=== PATIENT | male | born 1965 | race Caucasian/White ===

== ENCOUNTER → 2018-05-04 | Outpatient (CLI) | payer OTHER | LOC: M.ULTRA 06:22 | DX: R11.0 Nausea (principal); R10.11 Right upper quadrant pain; R10.13 Epigastric pain ==

== ENCOUNTER 2019-01-06 09:01 | Emergency (ER) | payer OTHER ==
[~2019-01-06] VITALS: Ht 182.9 cm; Wt 118.8 kg
[2019-01-06 09:32] LABS: ABSOLUTE LYMPHOCYTES 1.8 thou/uL (0.8-5.3); ABSOLUTE MONOCYTES 0.3 thou/uL (0.0-1.2); ABSOLUTE NEUTROPHILS 2.2 thou/uL (1.6-8.1); EOSINOPHILS 0.4 %; HEMATOCRIT 46.3 % (42.0-52.0); HEMOGLOBIN 15.8 gm/dL (14.0-18.0); LYMPHOCYTES 41.1 %; MCH 32.1 pg (26.0-34.0); MCHC 34.2 g/dL (28.0-37.0); MONOCYTES 7.7 %; NUCLEATED RBCS 0 /100WBC; PLATELET COUNT* 159 thou/uL (150-400); POLYS 49.8 %; RBC 4.93 mil/uL (4.50-6.00); RDW-CV 13.3 % (10.5-14.5); WBC 4.3 thou/uL (4.0-11.0)
[2019-01-06 09:44] LABS: APTT 23.1 Seconds (25.0-31.3); PROTIME 10.5 Seconds (9.20-11.50)
[2019-01-06 09:49] LABS: ANION GAP 7 mmol/L (7-16); BUN 12 mg/dL (7-18); CALCIUM 9.3 mg/dL (8.5-10.1); CHLORIDE 103 mmol/L (98-107); CO2 27 mmol/L (21-32); CREATININE 1.1 mg/dL (0.6-1.3); GLUCOSE 109 mg/dL (70-99); POTASSIUM 4.2 mmol/L (3.5-5.1); SODIUM 137 mmol/L (136-145)
[2019-01-06 09:53] LABS: ALBUMIN 3.9 g/dL (3.4-5.0); ALKALINE PHOSPHATASE 59 U/L (46-116); CK-MB MASS 1.5 ng/mL (<0.5-3.6); LIPASE 162 U/L (73-393); NT-PRO BRAIN NAT PEPTIDE 32 pg/mL (<300); SGOT 71 U/L (15-37); SGPT 150 U/L (30-65); TOTAL BILIRUBIN 0.4 mg/dL (<0.1-1.0); TOTAL PROTEIN 7.8 g/dL (6.4-8.2); TROPONIN-I LEVEL <0.06 ng/mL (<0.06)
--- NOTE | 2019-01-06 14:34 | EKG ---
[place] [address] ELECTROCARDIOGRAM REPORT Name: LESLIE MAIN Room: [facility]#: [id number] Admission: 01/06/19 Attend Phys: Discharge: Date of : 67 Report #: [id number] THIS REPORT FOR: //name// [facility] ED Test Date: 2019-01-06 Test Time: 09:04:44 Pat Name: LESLIE MAIN Department: Room: Gender: Prospect Manager: : 1965 Requested By: Zander Benavidez Order Number: [id number] MD: Laci Melchor Measurements Intervals Barre Rate: 58 P: 32 IN: 148 QRS: -23 QRSD: 87 T: 64 QT: 381 QTc: 375 Interpretive Statements Sinus rhythm Borderline left axis deviation Baseline wander in lead(s) V1 No previous ECG available for comparison Electronically Signed On 01-06-2019 14:33:45 CDT by Laci Melchor [email or web address] <ELECTRONICALLY SIGNED> By: Laci Melchor MD, [facility] 01/06/19 1433 0904 3 Laci Melchor MD, FACC /EPI
[2019-01-06 15:46] VITALS: BP 125/86
--- NOTE | 2019-01-06 16:53 | EXE ---
[place] [address] STRESS ECHOCARDIOGRAM Name: LESLIE MAIN Room: [facility]#: [id number] Admission: 01/06/19 Attend Phys: Discharge: 01/06/19 Date of : 67 Date of Service: 01/06/19 1652 Report #: [id number] THIS REPORT FOR: //name// APPROVED REPORT Study performed: 01/06/2019 14:48:14 Exam: Stress Echocardiogram Indication: Chest pain, Left arm numbness Patient Location: ER Stress Nurse: Fauzia Martínez RN Supervising Physician: Keith Greene MD Ht: 6 ft 0 in HR: 49 bpm BP: 137/78 mmHg Procedure The patient underwent an Exercise Stress Test using the Dom Protocol. Blood pressure, heart rate, and EKG were monitored. An Echocardiogram was performed by payroll technician in four stages in quad fashion. At peak stress, four selected images were obtained and placed side by side with resting images for comparison. Echo Enhancing Agent Indication: Endocardial border delineation Agent(s) / Amount(s) Used: Optison 10 cc Stress Test Details Stress Test: Exercise stress testing was performed using a Dom protocol. HR Resting HR: 49 bpm Max Heart Rate (APMHR): 168 bpm Max HR Achieved: 167 bpm Target HR (85% APMHR): 142 bpm % of APMHR: 99 Recovery HR: 103 bpm HR response to stress: Normal HR response to stress BP Resting BP: 137/78 mmHg Max BP: 216/87 mmHg Recovery BP: 143/79 mmHg BP response to stress: Normal blood pressure response to stress. ECG Resting ECG: [place] [address] STRESS ECHOCARDIOGRAM Name: LESLIE MAIN Room: [facility]#: [id number] Admission: 01/06/19 Attend Phys: Discharge: 01/06/19 Date of : 67 Date of Service: 01/06/19 1652 Report #: [id number] Stress ECG: Sinus Tachycardia ST Change: Normal Maximum ST Deviation: 0 mm Arrhythmia: None Recovery ECG: Sinus Rhythm Recovery ST Change: Normal Recovery ST Deviation: 0 mm Recovery Arrhythmia: None Clinical Reason for Termination: Completed protocol Exercise duration: 7 min 30 sec Highest Stage Achieved: Stage 3: 3.4 mph at 14% grade. Exercise capacity: 9.35 METs Pre-Stress Echo The resting Echocardiogram showed normal left ventricular contractility with an estimated Ejection Fraction of about 55-60%. Post-Stress Echo The stress Echocardiogram showed normal left ventricular contractility with an estimated Ejection Fraction of about >70%. Compared to rest, there were no stress-induced wall motion abnormalities. Conclusion Clinical Response: Non-ischemic Exercise Capacity: Average Stress ECG Response: Non-ischemic Stress Echo Images: Non-ischemic low risk stress echo for predicting future cardiac events Other Information Study Quality: Fair <Conclusion> low risk stress echo for predicting future cardiac events <ELECTRONICALLY SIGNED> By: Laci Melchor MD, [facility] 01/06/191651 51 51 Laci Melchor MD, FAC /INF
== END 2019-01-06 15:47 | disposition home or self-care (01) ==
LOC: M.ERS 09:01
PROVIDERS: Family Medicine
DX: R07.89 Other chest pain (principal); Z85.46 Personal history of malignant neoplasm of prostate; Z85.828 Personal history of other malignant neoplasm of skin

== ENCOUNTER 2019-05-03 19:49 | Emergency (ER) | payer OTHER ==
[~2019-05-03] VITALS: Ht 180.3 cm; Wt 113.4 kg
[2019-05-03] MEDS ORDERED: KEFLEX500 M1 PO (21:14)
[2019-05-03] MEDS ORDERED: TYLENOL WITH CO1 TA1 PO (21:14)
[2019-05-03] MEDS ORDERED: IBUPROFEN 800800 M1 PO (21:14)
[2019-05-03 21:26] VITALS: BP 160/87
== END 2019-05-03 21:27 | disposition home or self-care (01) ==
LOC: M.ERS 19:49
DX: S51.821A Laceration with foreign body of right forearm, initial encounter (principal); Z85.46 Personal history of malignant neoplasm of prostate; Z85.828 Personal history of other malignant neoplasm of skin; W26.8XXA Contact with other sharp object(s), not elsewhere classified, initial encounter; Y93.89 Activity, other specified; Y92.89 Other specified places as the place of occurrence of the external cause; Y99.8 Other external cause status

== ENCOUNTER 2019-06-13 11:53 | Emergency (ER) | payer OTHER ==
[~2019-06-13] VITALS: Ht 182.9 cm; Wt 113.4 kg
[~2019-06-13 11:53] MED LIST: IBUPROFEN 800800 M1 PO; KEFLEX500 M1 PO; TYLENOL WITH CO1 TA1 PO
[2019-06-13 12:28] LABS: INFLUENZA A ANTIGEN Negative (Negative); INFLUENZA B ANTIGEN Negative (Negative)
[2019-06-13] MEDS ORDERED: PREDNISONE 20 M20 M1 PO (12:47)
[2019-06-13] MEDS ORDERED: ZPAK PO (12:47)
[2019-06-13 13:10] LABS: ABSOLUTE LYMPHOCYTES 1.4 thou/uL (0.8-5.3); ABSOLUTE MONOCYTES 0.4 thou/uL (0.0-1.2); ABSOLUTE NEUTROPHILS 2.3 thou/uL (1.6-8.1); BASOPHILS 1.1 %; EOSINOPHILS 0.6 %; HEMATOCRIT 44.2 % (42.0-52.0); HEMOGLOBIN 15.3 gm/dL (14.0-18.0); MCH 31.9 pg (26.0-34.0); MCHC 34.6 g/dL (28.0-37.0); MONOCYTES 10.1 %; MPV 9.5 fl. (7.2-11.1); NUCLEATED RBCS 0 /100WBC; PLATELET COUNT* 132 thou/uL (150-400); POLYS 54.2 %; RBC 4.81 mil/uL (4.50-6.00); RDW-CV 13.1 % (10.5-14.5); WBC 4.2 thou/uL (4.0-11.0)
[2019-06-13 13:19] LABS: CALCIUM 8.9 mg/dL (8.5-10.1); CREATININE 1.2 mg/dL (0.6-1.3); POTASSIUM 3.9 mmol/L (3.5-5.1)
[2019-06-13 13:23] LABS: ALBUMIN 3.5 g/dL (3.4-5.0); TOTAL BILIRUBIN 0.4 mg/dL (<0.1-1.0); TOTAL PROTEIN 7.6 g/dL (6.4-8.2)
[2019-06-13 13:35] VITALS: BP 141/88
== END 2019-06-13 13:35 | disposition home or self-care (01) ==
LOC: M.ERS 11:53
PROVIDERS: Family Medicine
DX: J06.9 Acute upper respiratory infection, unspecified (principal); Z85.828 Personal history of other malignant neoplasm of skin; Z85.46 Personal history of malignant neoplasm of prostate

== ENCOUNTER → 2019-08-06 | Outpatient (CLI) | payer OTHER ==
[~2019-08-06] MED LIST changes: +PREDNISONE 20 M20 M1 PO; +ZPAK PO
== END ==
LOC: M.ULTRA 10:34
DX: K76.0 Fatty (change of) liver, not elsewhere classified (principal); K21.9 Gastro-esophageal reflux disease without esophagitis; R16.0 Hepatomegaly, not elsewhere classified